=== PATIENT | male | born 1975 | race African-American/Black ===

== ENCOUNTER → 2018-09-06 | Outpatient (CLI) | payer OTHER | LOC: CAT 11:59 | DX: Z13.6 Encounter for screening for cardiovascular disorders (principal); E78.00 Pure hypercholesterolemia, unspecified; I25.10 Atherosclerotic heart disease of native coronary artery without angina pectoris ==

== ENCOUNTER → 2019-02-08 | Outpatient (CLI) | payer OTHER ==
[~2019-02-08] VITALS: Ht 167.6 cm; Wt 158.8 kg
[~2019-02-08] MED LIST: LIPITOR10 MG PO; LOSARTAN-HCTZ1 EAC1 PO; METFORMIN HCL500 MG PO; NORVASC5 MG PO
[2019-02-08 11:57] VITALS: BP 181/121
== END | disposition home or self-care (01) ==
LOC: CATH 10:43
DX: I87.2 Venous insufficiency (chronic) (peripheral) (principal); I87.1 Compression of vein; I87.323 Chronic venous hypertension (idiopathic) with inflammation of bilateral lower extremity; I10 Essential (primary) hypertension; E78.5 Hyperlipidemia, unspecified; E11.9 Type 2 diabetes mellitus without complications; I73.9 Peripheral vascular disease, unspecified; E66.09 Other obesity due to excess calories; Z79.899 Other long term (current) drug therapy; Z98.890 Other specified postprocedural states

== ENCOUNTER → 2019-11-27 | Outpatient (CLI) | payer OTHER ==
[2019-11-27 11:39] LABS: ABSOLUTE NEUTROPHILS 2.3 thou/uL (1.4-8.2); EOSINOPHILS 5.4 % (0.0-3.0); HEMATOCRIT 39.6 % (42.0-52.0); HEMOGLOBIN 13.3 gm/dL (14.0-18.0); LYMPHOCYTES 37.4 % (24.0-44.0); MCH 28.6 pg (26.0-34.0); MCHC 33.6 g/dL (28.0-37.0); MONOCYTES 11.2 % (1.0-8.0); RBC 4.66 mil/uL (4.50-6.00); RDW 13.6 % (10.5-14.5); WBC 5.1 thou/uL (4.0-11.0)
[2019-11-27 12:04] LABS: ALBUMIN 3.5 g/dL (3.4-5.0); ANION GAP 5 mmol/L (7-16); BUN 14 mg/dL (7-18); CALCIUM 8.3 mg/dL (8.5-10.1); CHLORIDE 102 mmol/L (98-107); CHOLESTEROL 105 mg/dL (<200); CO2 30 mmol/L (21-32); CREATININE 1.2 mg/dL (0.7-1.3); GLUCOSE 103 mg/dL (74-106); HDL CHOLESTEROL 43 mg/dL (>40); LDL CHOLESTEROL 50 mg/dL (<100); POTASSIUM 3.4 mmol/L (3.5-5.1); SGOT 20 U/L (15-37); SGPT 36 U/L (30-65); SODIUM 137 mmol/L (136-145); TC:HDL 2.4 Ratio (Not establshd); TOTAL BILIRUBIN 0.2 mg/dL (0.2-1.0); TOTAL PROTEIN 7.3 g/dL (6.4-8.2); TRIGLYCERIDE 64 mg/dL (<150); VLDL 13 mg/dL (<40)
[2019-11-27 12:39] LABS: PLATELET COUNT 204 thou/uL (150-400)
[2019-11-28 01:11] LABS: GLYCOHEMOGLOBIN (HGB A1C) 6.2 % (4.8-5.6)
== END ==
LOC: LABMALL 10:55
PROVIDERS: ATTEND Family Medicine
DX: R73.03 Prediabetes (principal); I10 Essential (primary) hypertension

== ENCOUNTER → 2020-05-27 | Outpatient (CLI) | payer OTHER | LOC: HYPER 09:05 | PROVIDERS: ATTEND Emergency Medicine | DX: I89.0 Lymphedema, not elsewhere classified (principal); I87.2 Venous insufficiency (chronic) (peripheral); E11.21 Type 2 diabetes mellitus with diabetic nephropathy; I10 Essential (primary) hypertension; E66.01 Morbid (severe) obesity due to excess calories; Z68.43 Body mass index [BMI] 50.0-59.9, adult; Z79.84 Long term (current) use of oral hypoglycemic drugs ==

== ENCOUNTER → 2020-06-03 | Outpatient (CLI) | payer OTHER | LOC: HYPER 14:21 | PROVIDERS: ATTEND Emergency Medicine Emergency Medical Services | DX: I89.0 Lymphedema, not elsewhere classified (principal); I87.2 Venous insufficiency (chronic) (peripheral); E11.21 Type 2 diabetes mellitus with diabetic nephropathy; I10 Essential (primary) hypertension; E66.01 Morbid (severe) obesity due to excess calories; Z68.43 Body mass index [BMI] 50.0-59.9, adult; Z79.84 Long term (current) use of oral hypoglycemic drugs ==

== ENCOUNTER → 2021-06-18 | Outpatient (CLI) | payer OTHER ==
[2021-06-18 09:28] LABS: ABSOLUTE NEUTROPHILS 2.6 thou/uL (1.4-8.2); BASOPHILS 0.7 % (0.0-2.0); EOSINOPHILS 5.3 % (0.0-3.0); HEMOGLOBIN 13.4 gm/dL (14.0-18.0); LYMPHOCYTES 34.6 % (24.0-44.0); MCH 27.6 pg (26.0-34.0); MCV 86.4 fL (80.0-100.0); MONOCYTES 9.5 % (1.0-8.0); PLATELET COUNT 192 thou/uL (150-400); POLYS 49.9 % (36.0-66.0); RBC 4.86 mil/uL (4.50-6.00); RDW 14.1 % (10.5-14.5); WBC 5.3 thou/uL (4.0-11.0)
[2021-06-18 09:35] LABS: URINE BILIRUBIN NEGATIVE (Negative); URINE BLOOD NEGATIVE (Negative); URINE CLARITY CLEAR; URINE COLOR YELLOW; URINE GLUCOSE-RANDOM* NEGATIVE (Negative); URINE KETONES NEGATIVE (Negative); URINE LEUKOCYTES-REFLEX NEGATIVE (Negative); URINE NITRITE-REFLEX NEGATIVE (Negative); URINE PROTEIN (DIPSTICK) NEGATIVE (Negative); URINE SPECIFIC GRAVITY 1.025 (1.005-1.035); URINE UROBILINOGEN 0.2 E.U./dl (0.2-1.0)
[2021-06-18 09:46] LABS: ALBUMIN 3.7 g/dL (3.4-5.0); ANION GAP 6 mmol/L (7-16); BUN 12 mg/dL (7-18); CALCIUM 9.1 mg/dL (8.5-10.1); CHLORIDE 102 mmol/L (98-107); CHOLESTEROL 118 mg/dL (<200); CO2 31 mmol/L (21-32); CREATININE 1.1 mg/dL (0.7-1.3); GLUCOSE 116 mg/dL (74-106); HDL CHOLESTEROL 46 mg/dL (>40); LDL CHOLESTEROL 60 mg/dL (<100); POTASSIUM 3.7 mmol/L (3.5-5.1); SGOT 18 U/L (15-37); SGPT 41 U/L (30-65); SODIUM 139 mmol/L (136-145); TC:HDL 2.6 Ratio (Not establshd); TOTAL BILIRUBIN 0.3 mg/dL (0.2-1.0); TOTAL PROTEIN 8.2 g/dL (6.4-8.2); TRIGLYCERIDE 62 mg/dL (<150); VLDL 12 mg/dL (<40)
[2021-06-19 01:06] LABS: GLYCOHEMOGLOBIN (HGB A1C) 6.3 % (4.8-5.6)
== END ==
LOC: LAB 08:53
PROVIDERS: ATTEND Family Medicine
DX: Z00.00 Encounter for general adult medical examination without abnormal findings (principal); I10 Essential (primary) hypertension; G47.33 Obstructive sleep apnea (adult) (pediatric); E78.00 Pure hypercholesterolemia, unspecified; R73.03 Prediabetes